=== PATIENT | male | born 1975 | race Caucasian/White ===

== ENCOUNTER → 2024-01-02 | Outpatient (CLI) | payer OTHER | END | disposition home or self-care (01) | LOC: CT 10:31 | PROVIDERS: ATTEND Internal Medicine Hematology & Oncology | DX: J92.9 Pleural plaque without asbestos (principal); R91.8 Other nonspecific abnormal finding of lung field; J90 Pleural effusion, not elsewhere classified; J86.9 Pyothorax without fistula; Z98.890 Other specified postprocedural states ==